=== PATIENT | female | born 1975 | race Caucasian/White ===

== ENCOUNTER 2020-12-10 12:23 | Emergency (ER) | payer BC ==
[2020-12-10] MEDS ORDERED: Lidocaine 1% with EPINEPHrine 1:100,000 50 ML MDV INFILT ONE (13:19)
[2020-12-10] MEDS ORDERED: Bacitracin Oint 1 GM U/D Packet TOP ONE (13:19)
--- NOTE | 2020-12-10 13:53 | EDM.PDOC ---
ED HPI GENERAL MEDICAL PROBLEM - General Chief Complaint: Laceration Stated Complaint: CUT ON RT FOOT Time Seen by Provider: 12/10/20 13:30 Source of Information: Reports: Patient, Family History Limitations: Reports: No Limitations - History of Present Illness INITIAL COMMENTS - FREE TEXT/NARRATIVE: 45-year-old female with a laceration on her lateral left heel. A jar fell out of the refrigerator, broke, and a piece struck the lateral aspect of her left heel causing a laceration. No other injury. Onset: Sudden Duration: Hour(s): (1 hour ago) Location: Reports: Lower Extremity, Left Associated Symptoms: Reports: No Other Symptoms Treatments MINE DEPUTY: Reports: Aspirin Left Foot Pain Score (Numeric/FACES): 8 Right Foot Pain Score (Numeric/FACES): 8 - Related Data Allergies Allergy/AdvReac Type Severity Reaction Status Date / Time Penicillins Allergy Rash Verified 12/10/20 13:09 Home Meds: Home Meds Omeprazole 20 mg PO DAILY 12/10/20 [History] Past Medical History - Past Health History Medical/Surgical History: Denies Medical/Surgical History Social & Family History - Tobacco Use Tobacco Use Status *Q: Never Tobacco User Second Hand Smoke Exposure: No - Caffeine Use Caffeine Use: Reports: None - Alcohol Use Days Per Week of Alcohol Use: 2 Number of Drinks Per Day: 2 Total Drinks Per Week: 4 - Recreational Drug Use Recreational Drug Use: No ED ROS GENERAL - Review of Systems Review Of Systems: See Below Constitutional: Denies: Fever Respiratory: Reports: No Symptoms Cardiovascular: Reports: Dyspnea on Exertion GI/Abdominal: Denies: Nausea, Vomiting : Reports: No Symptoms Psychiatric: Reports: Anxiety ED EXAM, SKIN/RASH Exam: See Below Exam Limited By: No Limitations General Appearance: Alert, No Apparent Distress, Anxious Head: Atraumatic Respiratory/Chest: No Respiratory Distress Cardiovascular: Regular Rate, Rhythm Extremities: Other (Exam is otherwise limited to the left foot. On the lateral aspect of the heel there is a 2 cm laceration.) Neurological: Alert, Oriented Psychiatric: Anxious Course - Vital Signs Last Recorded V/S: Last Vital Signs Temp 97.9 F 12/10/20 13:26 Pulse 101 H 12/10/20 13:26 Resp 16 12/10/20 13:26 BP 179/91 H 12/10/20 13:26 Pulse Ox 94 L 12/10/20 13:26 - Orders/Labs/Meds Meds: Medications Discontinued Medications Generic Name Dose Route Start Last Admin Trade Name Yudith PRN Reason Stop Dose Admin Bacitracin 1 dose 12/10/20 13:19 12/10/20 13:48 Bacitracin Oint 1 Gm U/D Packet TOP 12/10/20 13:20 1 dose ONETIME ONE Administration Lidocaine/Epinephrine 50 ml 12/10/20 13:19 12/10/20 13:48 Lidocaine 1% With Epinephrine 1:100,000 50 Ml Mdv INFILT 12/10/20 13:20 50 ml ONETIME ONE Administration - Re-Assessments/Exams Free Text/Narrative Re-Assessment/Exam: 12/10/20 13:50 Laceration was anesthetized with 1% lidocaine with epinephrine, and the wound was explored with a tweezers and no foreign body was found. It was then cleaned thoroughly with normal saline and four 4-0 Ethilon sutures were used to close the wound. Topical bacitracin and a Band-Aid was applied, patient is going to leave the bandage in place till tomorrow and then keep the wound clean and covered until healed. Sutures can be removed in 8 days. Recheck sooner if concerns of infection or not healing satisfactorily. Departure - Departure Time of Disposition: 13:58 Disposition: Home, Self-Care 01 Clinical Impression: Laceration of left heel Qualifiers: Encounter type: initial encounter Qualified Code(s): S91.312A - Laceration without foreign body, left foot, initial encounter - Discharge Information Instructions: Laceration Care, Adult Referrals: PCP,None [Primary Care Provider] - Forms: ED Department Discharge Care Plan Goals: Keep wound covered and clean while healing, sutures can be removed next Friday the . Recheck sooner if concerns of infection or not healing satisfact orily. Ibuprofen or naproxen will be helpful with pain, add stronger pain medication sparingly if needed. Sepsis Event Note (ED) - Evaluation Sepsis Screening Result: No Definite Risk - Focused Exam Vital Signs: Vital Signs Temp Pulse Resp BP Pulse Ox 12/10/20 13:26 97.9 F 101 H 16 179/91 H 94 L 12/10/20 13:25 97.9 F 101 H 16 179/91 H 94 L
== END 2020-12-10 13:58 | disposition home or self-care (01) ==
LOC: JP.ED 12:23
DX: S91.312A Laceration without foreign body, left foot, initial encounter (principal); Z88.0 Allergy status to penicillin; W26.8XXA Contact with other sharp object(s), not elsewhere classified, initial encounter
CPT/HCPCS: 12001; 99282-25